=== PATIENT | male | born 1965 ===

== ENCOUNTER 2019-11-26 13:15 | Emergency (ER) | payer BC, SELFPAY ==
[2019-11-26 13:19] VITALS: BP 113/68; PULSE 65; RESP 18; TEMP 36.6; O2SAT 95; BMI 30.2
--- NOTE | 2019-11-26 13:28 | XR_ITS ---
WS: [id number] LEFT HAND 3 VIEWS HISTORY: 54 years old Male with injury AP, oblique, and lateral views left hand no comparison FINDINGS: Metallic foreign bodies obscure the fourth proximal phalanx and distal radioulnar joint and proximal carpal row. Distal thumb soft tissue deformity.. No underlying fracture or radiopaque foreign body se en. XR/XR hand LT min 3V* [id number] IMPRESSION: Distal thumb soft tissue deformity without underlying fracture or radiopaque fo reign body.
--- NOTE | 2019-11-26 13:28 | W.ED.UPPEXIN ---
HPI - Extremity Injury (Upper) General: Chief Complaint: Trauma Stated Complaint: CRUSH INJURY LEFT THUMB Time Seen by Provider: 11/26/19 13:16 Source: patient Mode of arrival: ambulatory Limitations: no limitations History of Present Illness: HPI narrative: Patient was using a wood splitter and caught his thumb of the left hand in the splitter. Patient caused a volar avulsion of the thumb pad. Patient reported that his tetanus was up-to-date. Patient was brought in by EMS and given fentanyl and Zofran in route. Patient denies any allergies or routine medications. MD complaint: injury to: finger (left thumb) Review of Systems General: Reports: 10 or more systems reviewed and unremarkable except in HPI and below Skin/Breast: Reports: other (laceratio left thumb) PFSH ED PFSH: Statuses (acute, chronic, etc) shown below reflect problem list status as previously entered and may not be historically accurate Social History Smoking and tobacco status: never smoked Physical Exam Const: COMMON NORMALS: no apparent distress and oriented x3 GENERAL APPEARANCE: cooperative HENMT: COMMON NORMALS: normocephalic, external ears normal, EAC's normal, TM's normal bilaterally and external nose normal HEAD & SCALP: normal to inspection and normocephalic FACE & SINUS: normal facial exam NOSE: external nose normal GENERAL EAR: hearing not grossly impaired EXTERNAL EAR: Yes external ears normal EXTERNAL AUDITORY CANAL: EAC's normal TYMPANIC MEMBRANE: TM's normal bilaterally MOUTH: oral and palatal mucosa normal THROAT: posterior oropharynx normal Eye: COMMON NORMALS: PERRL and EOMs intact bilaterally PUPIL: Yes PERRL Neck/C-Spine: COMMON NORMALS: full ROM and no lymphadenopathy Lymph: LYMPHATIC: no lymphedema noted Chest: COMMONS NORMALS: inspection of chest normal and palpation of chest normal Resp: COMMON NORMALS: normal respiratory effort and clear to auscultation bilaterally AUSCULTATION: clear to auscultation bilaterally Cardio: COMMON NORMALS: regular rate and regular rhythm RATE: regular rate RHYTHM: regular rhythm GI: COMMON NORMALS: normal to inspection, nondistended, normoactive bowel sounds and non-tender : COMMON NORMALS: Yes no CVA tenderness BLADDER/KIDNEY EXAM: Yes no CVA tenderness Back/Pelvis: COMMON NORMALS: no CVA tenderness and thoracic and lumbar spine normal to inspection Extremity: NARRATIVE EXTREMITY EXAM: Normal range of motion is noted to the thumb and hand on the left side. Injury is noted to the thumb pad with the pad being avulsed off but held on by a skin area of approximately 1 cm. Patient has range of motion with flexion and extension of the thumb. No injury to the nailbed is noted. Capillary refill is positive to the nailbed. Neuro: COMMON NORMALS: oriented x3, moves all extremities and no focal motor deficits Psych: COMMON NORMALS: mental status grossly normal and cooperative Skin: COMMON NORMALS: no rashes or lesions noted GENERAL SKIN EXAM: no rashes or lesions noted Procedures Laceration Laceration 1: Site: hand (left thumb) Side (If applicable): left Size (cm): 5 Description: flap (volar pad of thumb) Local Anesthetic: lidocaine 2% (8 ml for digital block) Amount of anesthesia used (mL): 8 Pre-repair: wound explored, irrigated extensively and deep structures intact Skin layer closed with: nylon Size (cm): 4-0 and 5-0 (four 5-0 sutures, 14 4-0 sutures) Number of sutures: 18 Technique: simple, interrupted Course Vital Signs: Vital signs: Vital Signs Temperature 97.8 F 11/26/19 13:19 Pulse Rate 65 11/26/19 13:19 Respiratory Rate 18 11/26/19 13:19 Blood Pressure 113/68 11/26/19 13:19 Pulse Oximetry 95 11/26/19 13:19 MDM - Extremity Injury (Upper) MDM Narrative: Medical decision making narrative: Patient comes in with injury to the left thumb pad. Patient had avulsed the volar thumb pad from the left thumb. Exam noted capillary refill to the nailbed, no significant nail injury was noted, no deep structure injury was noted to the tendons or bone. Differential diagnosis includes open fracture, tendon injury, foreign body, laceration. X-ray noted no bony injury. Exam noted no tendon injury or foreign body. Wound was well approximated with closure of the flap to the volar thumb. 18 sutures total were used to close the wound. Digital block was used for anesthesia. Patient tolerated procedure well. Reviewed postprocedure care and need for follow-up. Slowly failure to wound care for monitoring of wound healing. Discharge Plan Discharge Patient Disposition: Home, Self-Care Clinical Impression: Laceration of left thumb Qualifiers: Encounter type: initial encounter Damage to nail status: without damage Foreign body presence: without foreign body Qualified Code(s): S61.012A - Laceration without foreign body of left thumb without damage to nail, initial encounter Condition: Stable Prescriptions: New hydrocodone-acetaminophen 5-325 mg tablet 1 tab PO Q6H PRN (Reason: pain) Qty: 10 RF: 0 cephalexin 500 mg capsule 500 mg PO Q8H 10 Days Qty: 30 RF: 0 Discharge Orders: Discharge Order (Routine); Ordered 11/26/19 Ordered By: Ruben Chavez Discharge Diet: Usual diet Discharge Activity: Increase activity as tolerated Patient Instructions: Finger Laceration (ED) Activity Restrictions/Additional Instructions: Keep wound dressing in place for the next 2-3 days Keep wound clean and dry Follow-up with primary care in three days for recheck Case management will contact you in regards to follow-up appointment with wound care to monitor healing of wound and further treatment Return to ER for high fever or uncontrolled pain Coding Level of Care Code ED Systems Design Engineer for Joann Navarro Exam Problem Focused
[2019-11-26] MEDS: lidocaine 2% INJ 20 mL INJECTION (13:52)
[2019-11-26] MEDS: ceFAZolin 1,000 MG in sodium chloride 0.9% (plus) 50 ML 100 MG IV (14:25)
[2019-11-26 15:19] VITALS: BP 129/85; PULSE 68; RESP 18; O2SAT 96
--- NOTE | 2019-11-29 10:04 | DCPLANNER ---
senior engineering manager had message to schedule a follow up appointment for patient with Wound Care. senior engineering manager called [facility]ound Care, spoke with Noemi, a follow up appointment has been scheduled for Saturday, November 30, 2019 at 12:00 with Radha. senior engineering manager has tried calling the phone number and there was no answer and no voicemail.
--- NOTE | 2019-11-29 10:08 | DCPLANNER ---
actuarial manager had message to schedule a follow up appointment for patient with Wound Care. actuarial manager called [facility], spoke with January a follow up appointment is scheduled for Saturday, November 30, 2019 at 2:00 with Radha. actuarial manager called patient at the phone number there was no answer and did not have the option of leaving a voicemail for patient.
--- NOTE | 2019-12-13 10:35 | DCPLANNER ---
Patient did attend appointment scheduled for 11.30.19 with Wound Care.
== END 2019-11-26 15:10 | disposition home or self-care (01) ==
LOC: ER 15:07
PROVIDERS: Emergency Provider Nurse Practitioner Family
DX: S61.012A Laceration without foreign body of left thumb without damage to nail, initial encounter (principal); W31.89XA Contact with other specified machinery, initial encounter
CPT/HCPCS: 12002; 73130; 96365; 99283; A6446; J0690; J2001

== ENCOUNTER 2019-11-27 13:37 | Emergency (ER) | payer BC, SELFPAY ==
[2019-11-27 13:39] VITALS: BP 157/100; PULSE 64; RESP 16; TEMP 36.6; O2SAT 96; BMI 30.2
--- NOTE | 2019-11-27 13:57 | ED_ITS ---
HPI - Extremity Problem General: Chief complaint: Extremity Injury, Upper Stated complaint: THUMB INJURY- PAIN NOT SUBSIDED 06/28 Time Seen by Provider: 11/27/19 13:46 History of Present Illness: HPI Narrative: Patient comes in today for complaints of uncontrolled pain to the left thumb injury. Patient had a volar degloving of the left thumb. It was repaired yesterday and dressing was applied. Patient reports this morning he just had significant pain to the thumb and was not able to control it with prescription medication of hydrocodone. Wound was undressed in the ER and patient had significant relief of pain after removal of dressing. Patient appears well. Patient appears in moderate pain. Review of Systems General: Reports: 10 or more systems reviewed and unremarkable except in HPI and below Skin/Breast: Reports: other (left thumb pain) PFSH ED PFSH: Statuses (acute, chronic, etc) shown below reflect problem list status as previously entered and may not be historically accurate Social History Smoking and tobacco status: never smoked Physical Exam Const: COMMON NORMALS: no apparent distress and oriented x3 GENERAL APPEARANCE: cooperative HENMT: COMMON NORMALS: normocephalic, external ears normal, EAC's normal, TM's normal bilaterally and external nose normal HEAD & SCALP: normal to inspection and normocephalic FACE & SINUS: normal facial exam NOSE: external nose normal GENERAL EAR: hearing not grossly impaired EXTERNAL EAR: Yes external ears normal EXTERNAL AUDITORY CANAL: EAC's normal TYMPANIC MEMBRANE: TM's normal bilaterally MOUTH: oral and palatal mucosa normal THROAT: posterior oropharynx normal Eye: COMMON NORMALS: PERRL and EOMs intact bilaterally PUPIL: Yes PERRL Neck/C-Spine: COMMON NORMALS: full ROM and no lymphadenopathy Lymph: LYMPHATIC: no lymphedema noted Chest: COMMONS NORMALS: inspection of chest normal and palpation of chest normal Resp: COMMON NORMALS: normal respiratory effort and clear to auscultation bilaterally AUSCULTATION: clear to auscultation bilaterally Cardio: COMMON NORMALS: regular rate and regular rhythm RATE: regular rate RHYTHM: regular rhythm GI: COMMON NORMALS: normal to inspection, nondistended, normoactive bowel sounds and non-tender : COMMON NORMALS: Yes no CVA tenderness BLADDER/KIDNEY EXAM: Yes no CVA tenderness Back/Pelvis: COMMON NORMALS: no CVA tenderness and thoracic and lumbar spine normal to inspection Extremity: COMMON NORMALS: normal to inspection GENERAL: No edema OTHER: Examination of the wound note good closure of the wound perfusion is noted to the skin flap except at the margins. Capillary refill is noted to the thumb nail bed. Patient has good tendon control of the digit. Neuro: COMMON NORMALS: oriented x3, moves all extremities and no focal motor deficits Psych: COMMON NORMALS: mental status grossly normal and cooperative Skin: COMMON NORMALS: no rashes or lesions noted GENERAL SKIN EXAM: no rashes or lesions noted Course Vital Signs: Vital signs: Vital Signs Temperature 98 F 11/27/19 13:39 Pulse Rate 64 11/27/19 13:39 Respiratory Rate 16 11/27/19 13:39 Blood Pressure 157/100 11/27/19 13:39 Pulse Oximetry 96 11/27/19 13:39 MDM - Extremity (Nontraumatic) MDM Narrative: Medical decision making narrative: Patient comes in today due to uncontrolled pain to his injured thumb from yesterday. Exam patient had significant relief of pain after undressing of the wound. Evaluation of the wound noted good perfusion to the volar flap except at the edges. Vital signs were normal with no temperature. Differential diagnosis includes left thumb laceration with normal healing, tissue asphyxiation, wound infection. Patient was given a dose of Toradol IM 30 mg for pain. Patient be written prescription for Toradol tablets for further pain relief. Patient can continue hydrocodone and Keflex as directed. Encourage plenty of fluids. Discussed dressing change as needed. Otherwise, continue current plan with follow-up with wound care. Patient was agreeable to plan. Discharge Plan Discharge Patient Disposition: Home, Self-Care Clinical Impression: Laceration of left thumb Qualifiers: Encounter type: subsequent encounter Damage to nail status: without damage Foreign body presence: without foreign body Qualified Code(s): S61.012D - Laceration without foreign body of left thumb without damage to nail, subsequent encounter Condition: Stable Prescriptions: New ketorolac 10 mg tablet 10 mg PO Q6H PRN (Reason: pain) Qty: 14 RF: 0 No Action hydrocodone-acetaminophen 5-325 mg tablet 1 tab PO Q6H PRN (Reason: pain) Qty: 10 RF: 0 cephalexin 500 mg capsule 500 mg PO Q8H 10 Days Qty: 30 RF: 0 Discharge Orders: Discharge Order (Routine); Ordered 11/27/19 Ordered By: Ruben Chavez Discharge Diet: Usual diet Discharge Activity: Increase activity as tolerated Activity Restrictions/Additional Instructions: Keep wound clean and dry Change dressing if soiled or wet follow-up with wound care as scheduled through case management Return to ER for high fever or uncontrolled pain Coding Level of Care Code ED Machine Repairer Maintenance for Joann Navarro
[2019-11-27] MEDS: ketorolac 30 mg/mL INJ IM (13:59)
--- NOTE | 2019-11-29 12:02 | DCPLANNER ---
case management social worker had message to schedule a follow up appointment with Wound Care. Please refer to notes on 11.26.19, patient has an appointment scheduled, please refer to the notes on 11.26.19 for follow up notes.
== END 2019-11-27 14:07 | disposition home or self-care (01) ==
LOC: ER 13:59
PROVIDERS: Emergency Provider Nurse Practitioner Family
DX: S61.012A Laceration without foreign body of left thumb without damage to nail, initial encounter (principal); X58.XXXA Exposure to other specified factors, initial encounter
CPT/HCPCS: 96372; 99281; 99283; A6446; J1885

== ENCOUNTER 2019-12-05 12:59 | Outpatient (RCR) | payer BC, SELFPAY | END 2019-12-17 23:59 | disposition home or self-care (01) | LOC: WOUND 12:59 | PROVIDERS: Visit Provider Nurse Practitioner Family | DX: L85.3 Xerosis cutis (principal); M79.642 Pain in left hand | CPT/HCPCS: 99204; G0463 ==